=== PATIENT | male | born 1940 | race Hispanic/Latino ===

== ENCOUNTER → 2017-11-05 | Outpatient (CLI) | payer OTHER, MEDICARE ==
[~2017-11-05] MED LIST: DICL75TA5 PO; EZET10 PO; GABA-529 PO; LOSA25TA21 PO; OMEP40CA37 PO; OXYB10TA4 PO; ROSU20TA PO; TAMS0.4C32 PO
== END | disposition home or self-care (01) ==
LOC: SHCH 07:36
PROVIDERS: ATTEND Internal Medicine Cardiovascular Disease
DX: I10 Essential (primary) hypertension (principal)
CPT/HCPCS: 93306

== ENCOUNTER 2018-10-28 07:58 | Emergency (ER) | payer OTHER, MEDICARE ==
[~2018-10-28 07:58] MED LIST changes: +ATROVASTATIN PO; -DICL75TA5 PO; -EZET10 PO; +FINA5TAB41 PO; -GABA-529 PO; -LOSA25TA21 PO; +LOSA25TA41 PO; -OXYB10TA4 PO; -ROSU20TA PO; +SUCR1TAB2 PO
[2018-10-28 08:18] LABS: BASOPHILS % (AUTO) 1.2 % (0.0-5.0); EOSINOPHILS % (AUTO) 3.9 % (0.0-8.0); HEMATOCRIT 38.7 % (42-54); LYMPHOCYTES % (AUTO) 42.5 % (21.0-51.0); MEAN CORPUSCULAR HEMOGLOBIN 32.2 pg (27.0-33.0); MEAN CORPUSCULAR HGB CONC 33.8 g/dL (32.0-36.0); MEAN CORPUSCULAR VOLUME 95.1 fL (79-99); MONOCYTES % (AUTO) 7.2 % (3.0-13.0); NEUTROPHILS % (AUTO) 45.2 % (40.0-77.0); NUCLEATED RED BLOOD CELLS 0.1 % (0.0-0.19); PLATELET COUNT (AUTO) 208 K/uL (130-400); RED BLOOD CELL COUNT(AUTO) 4.07 MIL/uL (4.50-6.20); RED CELL DISTRIBUTION WIDTH 14.1 % (11.0-15.5); WHITE BLOOD COUNT (AUTO) 5.5 K/uL (4.8-10.8)
[2018-10-28 08:27] LABS: POTASSIUM 4.1 mmol/L (3.5-5.1)
[2018-10-28 08:28] LABS: ALBUMIN 3.6 g/dL (3.5-5.0); BILIRUBIN,TOTAL 0.6 mg/dL (0.2-1.0)
[2018-10-28 08:41] LABS: CREATININE 1.3 mg/dL (0.5-1.5)
[2018-10-28 09:03] LABS: APPEARANCE,URINE Clear (CLEAR); BILIRUBIN,URINE Negative (NEGATIVE); COLOR,URINE Dark Yellow (YELLOW); GLUCOSE, URINE (UA) Negative (NEGATIVE); KETONES,URINE Trace mg/dL (NEGATIVE); LEUKOCYTE ESTERASE ,URINE Trace (NEGATIVE); NITRATE,URINE Negative (NEGATIVE); OCCULT BLOOD,URINE Negative (NEGATIVE); PROTEIN,URINE Negative (NEGATIVE)
[2018-10-28 09:20] LABS: ERYTHROCYTE SEDIMENTATION RATE 20 MM/HR (0-20)
[2018-10-28 09:41] LABS: BACTERIA,URINE Rare /HPF (None Seen); MUCUS,URINE Few LPF (None Seen); RBC,URINE 0-1 /HPF (0-1); SQUAMOUS EPITHELIAL CELL,UR Rare /HPF (0-2); WBC,URINE 0-1 /HPF (0-1)
[2018-10-28] MEDS ORDERED: SODIUM CHLORIDE 0.9% 500ML 500 ML IV ONE (09:51)
== END 2018-10-28 15:50 | disposition home or self-care (01) ==
LOC: EDH 07:58
DX: M48.00 Spinal stenosis, site unspecified (principal); M62.81 Muscle weakness (generalized); R51 Headache; I10 Essential (primary) hypertension; E78.5 Hyperlipidemia, unspecified; Z90.49 Acquired absence of other specified parts of digestive tract; Z87.891 Personal history of nicotine dependence
CPT/HCPCS: 36415; 70450; 72131; 72148; 80053; 81001; 82948; 83605; 85025; 85651; 87804 ×2; 99285; J7040

== ENCOUNTER → 2019-03-30 | Outpatient (CLI) | payer OTHER, MEDICARE ==
[~2019-03-30] MED LIST changes: +OMEP40CA13 PO; -OMEP40CA37 PO
== END | disposition home or self-care (01) ==
LOC: SHCH 11:46
PROVIDERS: ATTEND Internal Medicine Cardiovascular Disease
DX: I08.0 Rheumatic disorders of both mitral and aortic valves (principal); I20.9 Angina pectoris, unspecified
CPT/HCPCS: 93306

== ENCOUNTER → 2019-06-27 | Outpatient (CLI) | payer OTHER, MEDICARE | END | disposition home or self-care (01) | LOC: RAH 08:25 | PROVIDERS: ATTEND Internal Medicine | DX: K59.00 Constipation, unspecified (principal); M47.815 Spondylosis without myelopathy or radiculopathy, thoracolumbar region; I87.8 Other specified disorders of veins | CPT/HCPCS: 74018 ==

== ENCOUNTER → 2019-08-24 | Outpatient (CLI) | payer OTHER, MEDICARE | END | disposition home or self-care (01) | LOC: RAH 12:36 | PROVIDERS: ATTEND Internal Medicine | DX: M47.816 Spondylosis without myelopathy or radiculopathy, lumbar region (principal); M25.78 Osteophyte, vertebrae; M48.061 Spinal stenosis, lumbar region without neurogenic claudication; M16.11 Unilateral primary osteoarthritis, right hip | CPT/HCPCS: 72100; 73502 ==

== ENCOUNTER → 2019-10-25 | Outpatient (CLI) | payer OTHER, MEDICARE | END | disposition home or self-care (01) | LOC: RAH 10:28 | PROVIDERS: ATTEND Internal Medicine | DX: I25.10 Atherosclerotic heart disease of native coronary artery without angina pectoris (principal); R93.89 Abnormal findings on diagnostic imaging of other specified body structures; Z87.891 Personal history of nicotine dependence; Z90.49 Acquired absence of other specified parts of digestive tract | CPT/HCPCS: 71250 ==

== ENCOUNTER → 2020-04-24 | Outpatient (CLI) | payer OTHER, MEDICARE | END | disposition home or self-care (01) | LOC: RAH 10:16 | PROVIDERS: ATTEND Internal Medicine | DX: K59.00 Constipation, unspecified (principal); M47.816 Spondylosis without myelopathy or radiculopathy, lumbar region | CPT/HCPCS: 74018 ==

== ENCOUNTER → 2020-05-02 | Outpatient (CLI) | payer OTHER, MEDICARE | END | disposition home or self-care (01) | LOC: SHCH 08:48 | PROVIDERS: ATTEND Internal Medicine Cardiovascular Disease | DX: I87.2 Venous insufficiency (chronic) (peripheral) (principal) | CPT/HCPCS: 93970 ==

== ENCOUNTER → 2020-05-18 | Outpatient (CLI) | payer OTHER, MEDICARE | END | disposition home or self-care (01) | LOC: RAH 08:24 | PROVIDERS: ATTEND Internal Medicine | DX: M17.12 Unilateral primary osteoarthritis, left knee (principal); M25.362 Other instability, left knee; M25.862 Other specified joint disorders, left knee; Z96.651 Presence of right artificial knee joint; Z98.890 Other specified postprocedural states | CPT/HCPCS: 73562 ==

== ENCOUNTER → 2020-06-14 | Outpatient (CLI) | payer OTHER, MEDICARE | END | disposition home or self-care (01) | LOC: SHCH 13:27 | PROVIDERS: ATTEND Internal Medicine Cardiovascular Disease | DX: I73.9 Peripheral vascular disease, unspecified (principal) | CPT/HCPCS: 93925 ==

== ENCOUNTER → 2020-08-28 | Outpatient (CLI) | payer OTHER, MEDICARE | END | disposition home or self-care (01) | LOC: RAH 08:01 | PROVIDERS: ATTEND Family Medicine | DX: M47.817 Spondylosis without myelopathy or radiculopathy, lumbosacral region (principal); M48.07 Spinal stenosis, lumbosacral region; M54.41 Lumbago with sciatica, right side | CPT/HCPCS: 72148 ==

== ENCOUNTER 2020-11-28 05:53 | Observation (INO) | payer OTHER, MEDICARE ==
[2020-11-22 11:18] LABS: BASOPHILS % (AUTO) 0.4 % (0.0-5.0); EOSINOPHILS % (AUTO) 2.2 % (0.0-8.0); HEMATOCRIT 37.2 % (42-54); LYMPHOCYTES % (AUTO) 30.5 % (21.0-51.0); MEAN CORPUSCULAR HEMOGLOBIN 32.7 pg (27.0-33.0); MEAN CORPUSCULAR HGB CONC 33.1 g/dL (32.0-36.0); MEAN CORPUSCULAR VOLUME 98.9 fL (79-99); MONOCYTES % (AUTO) 9.1 % (3.0-13.0); NEUTROPHILS % (AUTO) 57.4 % (40.0-77.0); PLATELET COUNT (AUTO) 248 K/uL (130-400); RED BLOOD CELL COUNT(AUTO) 3.76 MIL/uL (4.50-6.20); RED CELL DISTRIBUTION WIDTH 13.2 % (11.0-15.5); WHITE BLOOD COUNT (AUTO) 7.4 K/uL (4.8-10.8)
[2020-11-22 11:27] LABS: POTASSIUM 4.1 mmol/L (3.5-5.1)
[2020-11-27 09:29] VITALS: BP 148/81
[2020-11-28] VITALS (24 sets, daily range): BP systolic 93–122; BP diastolic 41–69
[~2020-11-28] VITALS: Ht 172.7 cm; Wt 98.0 kg
[~2020-11-28 05:53] MED LIST changes: +AEC81 PO; +ALEN70TA80 PO; +ATOR20TA65 PO; -ATROVASTATIN PO; +ETOD400T4 PO; -FINA5TAB41 PO; +FURO40TA5 PO; +LINA145C PO; +LORA10TA7 PO; -OMEP40CA13 PO; +OMEP40CA21 PO; -SUCR1TAB2 PO; +gaba PO
[2020-11-28] MEDS ORDERED: LACTATED RINGERS 1000ML 1,000 ML IV ONE (06:22)
[2020-11-28] MEDS ORDERED: CEFAZOLIN SODIUM 1 GM VIAL ONE ×2 (06:22→06:50)
[2020-11-28] MEDS ORDERED: BUPIVACAINE/EPI/PF 0.25% 30ML VIAL IJ ONE (06:48)
[2020-11-28] MEDS ORDERED: BUPIVACAINE/EPI/PF 0.25% 10ML VIAL IJ ONE (06:48)
[2020-11-28] MEDS ORDERED: MORPHINE PF 100MG/10ML AMP IV ONE (06:48)
[2020-11-28] MEDS ORDERED: THROMBIN-JMI 20000 UNIT KIT TP ONE (06:48)
[2020-11-28] MEDS ORDERED: SUCCINYLCHOLINE CHLORIDE 20 MG/ML 10 ML VIAL ONE (06:50)
[2020-11-28] MEDS ORDERED: LIDOCAINE PF 100MG/5ML (2%) SYRINGE 5ML ONE (06:50)
[2020-11-28] MEDS ORDERED: NEOSTIGMINE 5MG/5ML SYR IV ONE (06:51)
[2020-11-28] MEDS ORDERED: DEXAMETHASONE SOD PHOSPHATE 10MG/ML 1ML VIAL ONE (06:51)
[2020-11-28] MEDS ORDERED: MIDAZOLAM HCL 1 MG/ML 2ML VIAL ONE (06:51)
[2020-11-28] MEDS ORDERED: ROCURONIUM 10MG/1ML SYR 10 MG/ML ML ONE (06:51)
[2020-11-28] MEDS ORDERED: ONDANSETRON 4MG INJ ONE (06:51)
[2020-11-28] MEDS ORDERED: GLYCOPYRROLATE 1 MG/5 ML SYRINGE ONE (06:51)
[2020-11-28] MEDS ORDERED: PROPOFOL 10 MG/ML 20ML VIAL IV ONE (06:51)
[2020-11-28] MEDS ORDERED: FENTANYL CITRATE PF 50 MCG/1 ML 2ML VIAL ONE (06:52)
[2020-11-28] MEDS ORDERED: PHENYLEPHRINE HCL 10 MG/ML 1ML VIAL IV ONE (06:53)
[2020-11-28] MEDS ORDERED: EPHEDRINE SULFATE 50 MG/ML AMPULE ONE (06:58)
[2020-11-28] MEDS ORDERED: 0.9%NACL 10ML VIAL ONE (07:01)
[2020-11-28] MEDS: CEFAZOLIN SODIUM 1 GM VIAL IVP ONE ×2 (08:05→08:47)
[2020-11-28] MEDS ORDERED: GABA300C PO (08:35)
[2020-11-28] MEDS ORDERED: ARTIFICIAL TEARS 3.5 GM OINTMENT ONE (09:53)
[2020-11-28] MEDS ORDERED: HYDROCODONE/ACETAMINOPHEN 5/325 MG TAB PO PRN (10:45)
[2020-11-28] MEDS ORDERED: 0.9%NACL 10ML VIAL IVP PRN (10:45)
[2020-11-28] MEDS: DEXAMETHASONE SOD PHOSPHATE 4 MG/ML 1ML VIAL IVP SCH ×3 (10:45→22:48)
[2020-11-28] MEDS ORDERED: MORPHINE 2 MG SYG IVP PRN (10:45)
[2020-11-28] MEDS ORDERED: PROMETHAZINE HCL 25 MG/ML 1ML AMPULE IM PRN (10:45)
[2020-11-28] MEDS: CEFAZOLIN SODIUM 1 GM VIAL IVP SCH ×2 (10:45→17:37)
[2020-11-28] MEDS: LACTATED RINGERS 1000ML 1,000 ML IV SCH (12:07)
[2020-11-28] MEDS: GABAPENTIN 300 MG CAPSULE PO SCH (21:04)
[2020-11-28] MEDS: ATORVASTATIN 20 MG TABLET PO SCH (21:04)
[2020-11-28] MEDS: ETODOLAC 400 MG TABLET PO SCH (21:38)
[2020-11-29] MEDS: LACTATED RINGERS 1000ML 1,000 ML IV SCH ×2 (00:10→12:32)
[2020-11-29 04:39] VITALS: BP 107/56
[2020-11-29] MEDS: DEXAMETHASONE SOD PHOSPHATE 4 MG/ML 1ML VIAL IVP SCH ×3 (04:54→17:52)
[2020-11-29 08:04] VITALS: BP 112/54
[2020-11-29] MEDS ORDERED: FUROSEMIDE 40 MG TABLET PO SCH (09:00)
[2020-11-29] MEDS ORDERED: LOSARTAN 25 MG TABLET PO SCH (09:00)
[2020-11-29] MEDS ORDERED: LORATADINE 10 MG TABLET PO SCH (09:00)
[2020-11-29] MEDS ORDERED: PANTOPRAZOLE 40 MG TAB DR PO SCH (09:00)
[2020-11-29] MEDS ORDERED: ASPIRIN 81 MG EC TAB PO SCH (09:00)
[2020-11-29] MEDS ORDERED: TAMSULOSIN HCL 0.4 MG CAP.ER.24H PO SCH (09:00)
[2020-11-29] MEDS: ETODOLAC 400 MG TABLET PO SCH ×3 (09:58→20:19)
[2020-11-29] MEDS: GABAPENTIN 300 MG CAPSULE PO SCH ×3 (10:03→20:19)
[2020-11-29 12:00] VITALS: BP 130/59
[2020-11-29] MEDS ORDERED: METOPROLOL SUCCINATE 50 MG TAB.SR.24H PO SCH (13:30)
[2020-11-29 16:00] VITALS: BP 120/56
[2020-11-29] MEDS: ATORVASTATIN 20 MG TABLET PO SCH ×2 (19:32→20:19)
[2020-11-29 19:44] VITALS: BP 125/50
[2020-12-01] MEDS ORDERED: ALENDRONATE SODIUM 35 MG TAB PO SCH (09:00)
== END 2020-11-29 21:00 | disposition home or self-care (01) ==
LOC: DAH 05:53 → DAHIP 05:54 → EDSTATUS 07:30 → 4AH 12:12
PROVIDERS: ADMIT Neurological Surgery; ATTEND Neurological Surgery
DX: M48.061 Spinal stenosis, lumbar region without neurogenic claudication (principal); I45.10 Unspecified right bundle-branch block; I10 Essential (primary) hypertension; I48.91 Unspecified atrial fibrillation; E78.5 Hyperlipidemia, unspecified; I87.2 Venous insufficiency (chronic) (peripheral); I49.1 Atrial premature depolarization; I95.1 Orthostatic hypotension
CPT/HCPCS: 36415; 63047; 63048 ×2; 72020; 80051; 84484 ×3; 85025; 87635; 93005 ×2; 96361 ×2; 96374; 96375; 96376 ×2; A4215; A4216; A4221; A4222; A4223 ×2; A4344; A4510; A4600; A4649 ×4; A4663; G0378 ×34; J0330; J0690 ×3; J1100 ×6; J2001; J2250; J2274; J2370; J2405; J2704; J2710; J3010; J3490 ×4; J7120 ×3

== ENCOUNTER → 2021-01-01 | Outpatient (CLI) | payer OTHER, MEDICARE ==
[~2021-01-01] MED LIST changes: +GABA300C PO; +REGADENOSON 0.4 MG/5 ML PF SYG IVP SCH; -gaba PO
== END | disposition home or self-care (01) ==
LOC: SHCH 08:59
PROVIDERS: ATTEND Internal Medicine Cardiovascular Disease
DX: R94.39 Abnormal result of other cardiovascular function study (principal); R07.9 Chest pain, unspecified
CPT/HCPCS: 78452; 93017; 96374; A9500 ×2; J2785

== ENCOUNTER → 2022-01-27 | Outpatient (CLI) | payer OTHER, MEDICARE ==
[~2022-01-27] MED LIST changes: -REGADENOSON 0.4 MG/5 ML PF SYG IVP SCH
== END | disposition home or self-care (01) ==
LOC: SHCH 09:29
PROVIDERS: ATTEND Internal Medicine Cardiovascular Disease
DX: I87.2 Venous insufficiency (chronic) (peripheral) (principal)
CPT/HCPCS: 93970

== ENCOUNTER → 2022-10-13 | Outpatient (CLI) | payer OTHER, MEDICARE ==
[2022-10-13 16:24] LABS: BASOPHILS % (AUTO) 0.4 % (0.0-5.0); EOSINOPHILS % (AUTO) 3.6 % (0.0-8.0); HEMATOCRIT 36.6 % (42-54); LYMPHOCYTES % (AUTO) 32.8 % (21.0-51.0); MEAN CORPUSCULAR HEMOGLOBIN 31.9 pg (27.0-33.0); MEAN CORPUSCULAR HGB CONC 32.8 g/dL (32.0-36.0); MEAN CORPUSCULAR VOLUME 97.3 fL (79-99); NEUTROPHILS % (AUTO) 53.1 % (40.0-77.0); PLATELET COUNT (AUTO) 201 K/uL (130-400); RED BLOOD CELL COUNT(AUTO) 3.76 MIL/uL (4.50-6.20); RED CELL DISTRIBUTION WIDTH 13.6 % (11.0-15.5); WHITE BLOOD COUNT (AUTO) 6.7 K/uL (4.8-10.8)
[2022-10-13 16:35] LABS: CREATININE 1.6 mg/dL (0.5-1.5); POTASSIUM 4.1 mmol/L (3.5-5.1)
[2022-10-13 16:39] LABS: INR 0.93 (0.85-1.15); PROTHROMBIN TIME 10.1 SEC (9.6-11.6)
[2022-10-13 16:41] LABS: PARTIAL THROMBOPLASTIN TIME 29.3 SEC (26.3-35.5)
== END | disposition home or self-care (01) ==
LOC: LAB 15:17
PROVIDERS: ATTEND Internal Medicine Cardiovascular Disease
DX: I87.2 Venous insufficiency (chronic) (peripheral) (principal); I48.91 Unspecified atrial fibrillation
CPT/HCPCS: 36415; 80048; 85025; 85610; 85730

== ENCOUNTER → 2023-02-16 | Outpatient (CLI) | payer OTHER, MEDICARE | END | disposition home or self-care (01) | LOC: SHCH 10:00 | PROVIDERS: ATTEND Internal Medicine Cardiovascular Disease | DX: I87.2 Venous insufficiency (chronic) (peripheral) (principal) | CPT/HCPCS: 93970 ==

== ENCOUNTER → 2023-03-27 | Outpatient (CLI) | payer OTHER, MEDICARE ==
[2023-03-27 15:13] LABS: BASOPHILS # (AUTO) 0.02 K/uL (0.00-0.20); BASOPHILS % (AUTO) 0.3 % (0.0-5.0); HEMATOCRIT 35.2 % (42-54); IMMATURE GRANULOCYTE ABSOLUTE 0.02 K/uL (0-1); LYMPHOCYTES # (AUTO) 2.1 K/uL (1.0-4.8); LYMPHOCYTES % (AUTO) 30.7 % (21.0-51.0); MEAN CORPUSCULAR HEMOGLOBIN 31.7 pg (27.0-33.0); MEAN CORPUSCULAR HGB CONC 32.1 g/dL (32.0-36.0); MEAN CORPUSCULAR VOLUME 98.6 fL (79-99); MONOCYTES # (AUTO) 0.7 K/uL (0.1-1.0); NEUTROPHILS # (AUTO) 3.5 K/uL (1.8-7.7); NEUTROPHILS % (AUTO) 52.7 % (40.0-77.0); PLATELET COUNT (AUTO) 247 K/uL (130-400); RED BLOOD CELL COUNT(AUTO) 3.57 MIL/uL (4.50-6.20); RED CELL DISTRIBUTION WIDTH 14.5 % (11.0-15.5); WHITE BLOOD COUNT (AUTO) 6.7 K/uL (4.8-10.8)
[2023-03-27 15:20] LABS: CREATININE 1.7 mg/dL (0.5-1.5)
[2023-03-27 15:27] LABS: INR < 0.93 (0.85-1.15); PROTHROMBIN TIME 10.5 SEC (9.6-11.6)
[2023-03-27 15:28] LABS: PARTIAL THROMBOPLASTIN TIME 30.4 SEC (26.3-35.5)
== END | disposition home or self-care (01) ==
LOC: LAB 13:15
PROVIDERS: ATTEND Internal Medicine Cardiovascular Disease
DX: I11.9 Hypertensive heart disease without heart failure (principal); I87.1 Compression of vein; M79.89 Other specified soft tissue disorders
CPT/HCPCS: 36415; 80048; 85025; 85610; 85730

== ENCOUNTER → 2023-03-30 | Outpatient (CLI) | payer OTHER, MEDICARE | END | disposition home or self-care (01) | LOC: SHCH 13:53 | PROVIDERS: ATTEND Internal Medicine Cardiovascular Disease | DX: I87.2 Venous insufficiency (chronic) (peripheral) (principal); Z98.890 Other specified postprocedural states | CPT/HCPCS: 93971 ==

== ENCOUNTER → 2023-04-15 | Outpatient (CLI) | payer OTHER, MEDICARE | END | disposition home or self-care (01) | LOC: RAH 12:39 | PROVIDERS: ATTEND Internal Medicine Cardiovascular Disease | DX: R60.9 Edema, unspecified (principal); Z95.828 Presence of other vascular implants and grafts; M79.604 Pain in right leg | CPT/HCPCS: 93970 ==

== ENCOUNTER → 2023-04-23 | Outpatient (CLI) | payer OTHER, MEDICARE | END | disposition home or self-care (01) | LOC: SHCH 14:43 | PROVIDERS: ATTEND Internal Medicine Cardiovascular Disease | DX: I87.2 Venous insufficiency (chronic) (peripheral) (principal); Z98.890 Other specified postprocedural states | CPT/HCPCS: 93971 ==